=== PATIENT | female | born 1975 | race African-American/Black ===

== ENCOUNTER 2021-08-25 06:28 | Emergency (ER) | payer OTHER ==
[~2021-08-25] VITALS: Ht 170.2 cm; Wt 72.6 kg
[2021-08-25] MEDS ORDERED: KETOROLAC TROMETHAMINE INJ 30 MG/ML VIAL ONE (06:48)
[2021-08-25] MEDS ORDERED: MORPHINE SULFATE INJ 4 MG/ML DISP.SYRIN ONE (06:48)
--- NOTE | 2021-08-25 06:50 | NUR ---
PATIENT BIBS C/O "PULLED MY BACK THURSDAY, NOW HAVE SHOOTING MIDDLE BACK PAIN". PATIENT IS A/O X4, RR EVEN AND UNALBORED, NO SOB NOTED, PATIENT CONNECETED TO [employer]IST AND POX.
[2021-08-25] MEDS ORDERED: MORPHINE SULFATE INJ 2 MG/ML DISP.SYRIN IM ONE (07:00)
[2021-08-25] MEDS ORDERED: KETOROLAC TROMETHAMINE INJ 60 MG/2 ML VIAL IM ONE (07:00)
[2021-08-25] MEDS ORDERED: NAPR-1164 PO (08:09)
[2021-08-25] MEDS ORDERED: CYCL10TA9 PO (08:09)
[2021-08-25 08:27] VITALS: BP 142/71
[2021-08-25] MEDS ORDERED: DIAZEPAM 5 MG TABLET ONE (09:18)
[2021-08-25] MEDS ORDERED: METOCLOPRAMIDE HCL 10 MG/2 ML VIAL ONE (09:19)
[2021-08-25] MEDS ORDERED: DIAZEPAM 5 MG TABLET PO ONE (09:30)
[2021-08-25] MEDS ORDERED: METOCLOPRAMIDE HCL 10 MG/2 ML VIAL IM ONE (09:30)
--- NOTE | 2021-08-25 09:47 | NUR ---
Patient discharged to home in stable condition. Written and verbal after care instructions given. Patient verbalizes understanding of instruction.
== END 2021-08-25 09:47 | disposition home or self-care (01) ==
LOC: ER 06:28
DX: S39.012A Strain of muscle, fascia and tendon of lower back, initial encounter (principal); Z88.8 Allergy status to other drugs, medicaments and biological substances; X58.XXXA Exposure to other specified factors, initial encounter; Y93.89 Activity, other specified; Y92.89 Other specified places as the place of occurrence of the external cause; Y99.8 Other external cause status
CPT/HCPCS: 96372 ×2; 99284; J1885; J2270; J2765; J7030